=== PATIENT | male | born 1970 | race Caucasian/White ===

== ENCOUNTER 2017-03-18 11:24 | Emergency (ER) | payer OTHER ==
[~2017-03-18] VITALS: Ht 177.8 cm; Wt 118.2 kg
[2017-03-18 11:27] VITALS: BP 177/111; PULSE 95; RESP 20; O2SAT 99
--- NOTE | 2017-03-18 11:51 | ED.REPORT ---
HPI-Extremity Problem Lower Date of Service Mar 18, 2017 ED Provider: Gutierrez Bridges MD Pt is an otherwise healthy 46 year old male who presents to the ED complaining of right knee pain onset prior to arrival. He c/o associated nausea, right leg pain, and low back pain. He denies hip pain, abdominal pain, head pain, and chest pain. The pt reports that a log trailer at work landed on his right knee and he felt it pop. He states his trailer weighs a "couple hundred pounds" and that it remained on him for a couple seconds until someone got it off of him. Pt is able to walk on his leg, but reports that it is painful. Nursing Notes Stated Complaint: RIGHT KNEE AND LEG PAIN Chief Complaint: Extremity Trauma Nursing Notes Reviewed: Yes Allergies: Coded Allergies: Penicillins (Verified Allergy, Mild, 03/18/17) Scheduled PRN Hydrocodone-Acetaminophen 5-325 mg (Hydrocodone-Acetaminophen 5-325 mg) 1 Each Tablet 1-2 TABLET PO Q4H PRN PRN For Pain General Time Seen by MD: 11:50 Chief Complaint Leg injury right Hx Obtained From: Patient Arrived By: Walk-in Onset Occurred: Just prior to arrival Symptom Duration: Since onset Location: : Knee right: Leg right Quality: Painful Severity: Current: Moderate Severity: Maximum: Moderate Recent Healthcare: No recent doctor visit, No recent hospitalization Similar Sx Previous: No Past Medical History Past Medical History Denies - healthy Past Surgical History Denies Smoking History Unknown if Ever Smoker Social History Other Social History: Good social support 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 Cardiovascular: Denies: Chest pain GI: Denies: Abdominal pain Physical Exam Initial Vital Signs Vital Signs (First) Date Time Temp Pulse Resp B/P Pulse Ox O2 Delivery O2 Flow Rate FiO2 03/18/17 11:27 36.8 95 20 177/111 99 Room Air Initial VS: Reviewed Head / Eyes: Atraumatic, Normocephalic Neck: Supple, Full range of motion Respiratory: Breath sounds normal, Clear to auscultation, No respiratory distress Cardiovascular: Regular rate & rhythm, Heart sounds normal, Intact distal pulses Abdomen / GI: Soft, Non-tender Upper Extremities: Vascular intact, Neuro intact Skin: Warm, Dry, No cyanosis Neurologic: Alert, Oriented, Nonfocal Psychiatric: Mood/affect normal, Behavior normal Lower Extremity / Pelvis / MS: Neurologic intact, Vascular intact Right knee appears normal; good range of motion and no contusion visible. Ankle / Foot: Neurologic intact, Vascular intact Back: Full range of motion Additional Notes: Right SI joint tenderness Interpretation & Diagnostics X-Ray Interpretation Xray Interpretation: IMPRESSION: 1. No definite fractures. 2. Mild multilevel retrolisthesis likely degenerative in etiology. Dictated by: Josemanuel Meza M.D. on 03/18/2017 at 13:0 Study Performed: Lumbar spine, 2 or 3 view Interpretation / Wet Read by: Interpret - Radiologist Xray Interpretation: IMPRESSION: 1. No definite fracture or dislocation. Dictated by: Josemanuel Meza M.D. on 03/18/2017 at 13:02 Study Performed: 1 or 2 view X-Ray Ordered: Pelvis Interpretation / Wet Read by: Interpret - Radiologist Xray Interpretation: IMPRESSION: 1. No fracture or subluxation. Dictated by: Josemanuel Meza M.D. on 03/18/2017 at 12:55 Study Performed: 3 views X-Ray Ordered: Knee right Re-Eval/Medical Decision Source of Hx: Old records Re-Evaluation/Progress #1: Time of Eval: 12:26 Re-Evaluation/Progress Note: Pt rechecked. Re-examed pt's back. All questions addressed. Re-Evaluation/Progress #2: Time of Eval: 13:39 Patient Status: Condition improved Re-Evaluation/Progress Note: Pt rechecked. Informed pt of results and plan for discharge. Pt understands and agrees with plan for discharge. F/U instructions and RTER warnings given. All questions addressed. Counseled Regarding: Diagnosis, Need for follow-up, When/why to return to ED Discharge & Departure Impression: Primary Impression: Contusion, knee Encounter type: initial encounter Laterality: right Qualified Code: S80.01XA - Contusion of right knee, initial encounter Additional Impression: Lumbosacral strain Encounter type: initial encounter Qualified Code: S39.012A - Strain of muscle, fascia and tendon of lower back, initial encounter Disposition: Home Discharge Condition All VS Reviewed: Yes Condition: Stable Patient Instructions: Contusions in Adults (ED) Additional Instructions: No fractures are identified today. I recommended ibuprofen 800 mg every 8 hours. Use hydrocodone/APAP 5/325 one or 2 tablets every 4 hours as needed for more severe pain. Follow up next week if symptoms are not improving. Crutch walking for comfort. Referrals: Jaylon Martinez MD (PCP) Scribe Attestation Portions of this note were transcribed by Brenda Marquez. I, Dr. Bridges personally performed the history, physical exam and medical decision-making; I reviewed and confirmed the accuracy of the information in the transcribed note. Signed by: Donny Shahid, 03/18/17 and 13:30. copies to: Jaylon Martinez MD, Kirk H MD Mar 18, 2017 11:51 Brenda Motnoya Mar 18, 2017 11:58
[2017-03-18] MEDS ORDERED: HYDROcodone-APAP 10-325 mg PO ONE (11:55)
--- NOTE | 2017-03-18 12:57 | DRSVH ---
PROCEDURE: X-RAY RIGHT KNEE, THREE VIEWS ([id number]) INDICATIONS: trauma TECHNIQUE: 3 views of the knee were acquired. COMPARISON: None. FINDINGS: Bones: No fractures or dislocations. There is mild joint space narrowing in the medial compartment. No suspicious bony lesions. Soft tissues: No joint effusion. No suspicious soft tissue calcifications. IMPRESSION: 1. No fracture or subluxation. Dictated by: Josemanuel Meza M.D. on 03/18/2017 at 12:55 Approved by: Josemanuel Meza M.D. on 03/18/2017 at 12:56
--- NOTE | 2017-03-18 13:04 | DRSVH ---
PROCEDURE: X-RAY LUMBAR SPINE, 2 OR 3 VIEW INDICATIONS: TRAUMA TECHNIQUE: 3 views of the lumbar spine were acquired. COMPARISON: None. FINDINGS: Bones: 5 [id number] vertebrae are present. There is minimal retrolisthesis at T12-L1, L1-L2, L2 -L3, and L3-L4. There is mild multilevel disc space narrowing in the mid and lower lumbar spine. No vertebral body compression fractures. No suspicious bony lesions. Soft tissues: Overlying bowel gas pattern is normal. No suspicious soft tissue calcifications. IMPRESSION: 1. No definite fractures. 2. Mild multilevel retrolisthesis likely degenerative in etiology. Dictated by: Josemanuel Meza M.D. on 03/18/2017 at 13:01 Approved by: Josemanuel Meza M.D. on 03/18/2017 at 13:02
--- NOTE | 2017-03-18 13:05 | DRSVH ---
PROCEDURE: X-RAY PELVIS, ONE OR TWO VIEWS ([id number]) INDICATIONS: trauma TECHNIQUE: Single view of the pelvis acquired. COMPARISON: None. FINDINGS: Bones: No fractures or dislocations. No suspicious bony lesions. Soft tissues: Visualized bowel gas pattern is normal. No suspicious soft tissue calcifications. IMPRESSION: 1. No definite fracture or dislocation. Dictated by: Josemanuel Meza M.D. on 03/18/2017 at 13:02 Approved by: Josmeanuel Meza M.D. on 03/18/2017 at 13:03
[2017-03-18 13:15] VITALS: BP 180/111; PULSE 60; RESP 18; O2SAT 99
[2017-03-18] MEDS ORDERED: HYDR-4003 PO (14:37)
== END 2017-03-18 14:56 | disposition home or self-care (01) ==
LOC: SED 11:24
DX: S39.012A Strain of muscle, fascia and tendon of lower back, initial encounter (principal); S80.01XA Contusion of right knee, initial encounter; W20.8XXA Other cause of strike by thrown, projected or falling object, initial encounter; Y93.89 Activity, other specified; Y92.69 Other specified industrial and construction area as the place of occurrence of the external cause; Y99.0 Civilian activity done for income or pay; M79.604 Pain in right leg; R11.0 Nausea; Z88.0 Allergy status to penicillin